=== PATIENT | female | born 1985 | race Caucasian/White ===

== ENCOUNTER 2024-10-05 16:06 | Inpatient (IN) ==
[2024-10-05] MEDS: LACTATED RINGER'S 1,000 ML IV SCH (17:20)
[2024-10-05 17:22] LABS: Basophils # (auto) 0.03 K/uL (0.00-0.20); Basophils % (auto) 0.4 %; Eosinophils # (auto) 0.06 K/uL (0.00-0.50); Eosinophils % (auto) 0.8 %; Hematocrit (blood only) 36.8 % (37.0-47.0); Hemoglobin 12.7 g/dl (12.0-16.0); Immature Granulocytes # (auto) 0.08 K/uL (0.01-0.20); Lymphocytes # (auto) 2.38 K/uL (1.20-3.40); Lymphocytes % (auto) 30.6 %; Mean Corpuscular Hemoglobin 32.9 pg (25.0-34.0); Mean Corpuscular Hgb Conc 34.5 g/dL (32.0-36.0); Mean Corpuscular Volume 95.3 fL (80.0-100.0); Monocytes # (auto) 0.54 K/uL (0.11-0.59); Monocytes % (auto) 6.9 %; Neutrophils # (auto) 4.68 K/uL (1.40-6.50); Neutrophils % (auto) 60.3 %; Platelet Count 163 K/uL (130-400); RDW Coefficient of Variation 12.7 % (11.5-14.5); RDW Standard Deviation 43.7 fL (36.4-46.3); Red Blood Count 3.86 M/uL (4.20-5.40); White Blood Count 7.77 K/ul (4.8-10.8)
[2024-10-05 17:33] LABS: Creatinine Urine Random 67.6 mg/dl; Protein Creatinine Ratio Urine 0.2 (0-0.2); Total Protein Urine Random 13.5 mg/dl (0-11.9)
[2024-10-05 17:38] LABS: Albumin Globulin Ratio 1.2 (0.9-2); Albumin Level 3.3 gm/dl (3.4-5.0); BUN Creatinine Ratio 12.3 (10-20); Bilirubin,Total 0.4 mg/dl (0.2-1.0); Calcium 8.6 mg/dl (8.6-10.3); Creatinine Clr Calc Pharmacy 113.3 ml/min; Globulin 2.8 gm/dl (2.5-4.0); Potassium 4.2 mmol/L (3.5-5.1); Total Protein 6.1 gm/dl (6.0-8.3)
[2024-10-05] MEDS ORDERED: OXYTOCIN 30 UNITS/NSS 30 UNITS/500 ML BAG IV PRN (19:11)
[2024-10-05] MEDS ORDERED: LACTATED RINGER'S 1,000 ML IV PRN (19:11)
[2024-10-05] MEDS ORDERED: LIDOCAINE 1% LOCAL 20 ML VIAL INFIL PRN (19:11)
[2024-10-05] MEDS: PENICILLIN GK 6 MU in DEXTROSE 5% 250 ML IV STA (19:49)
--- NOTE | 2024-10-05 19:49 | History & Physical Report ---
Date of Service October 05, 2024 Assessment & Plan (1) Gestational hypertension: (2) Polyhydramnios affecting : (3) LGA (large for gestational age) fetus affecting mother, antepartum: (4) Gestational diabetes mellitus (GDM) affecting , antepartum: (5) Group beta Strep positive: (6) Rh negative status during : Plan 39 yo at 38 4/7 wga now dx w/ ghtn Mild range bps Fetus cat 1 gHTN - rec induction, pt agreeable. Labs wnl. Will continue to monitor bps GDM - bg q4 labor - will allow pt to have light dinner, then plan antonio/pit GBS+, pcn to start declines epidural History of Present Illness Chief Complaint: elevated bps Primary Care Provider: Alea Tucker 39 yo at 38 4/7 wga presents for eval of bps. Was seen in office for deb today and diastolics noted to be in the 90s persistently. Due to GA, sent for eval. +FM and irreg ctx, denies LOF, VB. Denies jose, vision change, cp, sob, ruq/epigastric pain. On arrival, mild range bps. 2 severes back to back noted but machine was going off during ctx and glitched when rn tried to stop it. Repeat was mild range. Labs and uP:C wnl, however continued to have mild range bps oer 4hrs from initial so meets criteria for ghtn and rec for iol PNI: A1GDM Polyhydramnios GBS+ AMA suspected LGA Rh neg Past Pregnancies Del. Date GA wks Lbr Lgth wt Sex Type del Anes Place Del Prov ? Comment 05/15/04 41 8 8-12 F [facility] N IOL post dates 02/19/09 41 8 9-6 M [facility] N IOL post dates, mild shoulder dystocia 08/02/11 39 8 7-3 F [facility] N 09/23/13 41 8 8-12 F [facility] CON Vasquez N IOL post date denies hx stis Allergies Allergy/AdvReac Type Severity Reaction Status Date / Time No Known Allergies Allergy Verified 10/05/24 17:00 Home Medications Medication Instructions Recorded Confirmed Type acetone (urine) test (Ketone Urine #50 ea 08/10/24 10/05/24 Rx Test strips) blood sugar diagnostic (OneTouch #150 ea 08/10/24 10/05/24 Rx Verio test strips) blood-glucose meter (OneTouch #1 ea 08/10/24 10/05/24 Rx Verio Reflect Meter) lancets 33 gauge (OneTouch Delica #150 ea 08/10/24 10/05/24 Rx Plus Lancet) Patient History Medical History (Updated 10/05/24 @ 19:48 by Zaida Cordova MD) Ovarian cyst Torsion of fallopian tube History of chicken pox Surgical History S/P unilateral salpingo-oophorectomy S/P breast augmentation S/P wisdom tooth extraction S/P loop electrosurgical excision procedure Family History Grandmother (Maternal) Muscular dystrophy Denies family history of Ovarian cancer Breast cancer Colorectal cancer Social History (Updated 03/02/24 @ 10:23 by Tosha Rivas) Smoking Status: Never smoker Do You Dip or Chew Tobacco: No; Hx Substance Use: No Preferred Language: Kyrgyz Communication Ability: Effective Stiff Neck Loader Required: No Beliefs That Will Affect Care: None marital status: Single marital status details: Bin Harrison (40) Current Living Situation: Family Current Living Situation Comment: lives with children, dog current occupational status: employed current occupation: [employer] RN Assistive Devices: Contacts and Glasses Physical Exam Genitourinary: OB Exam Abdomen: + vertex and + estimated weight (7-8) Manual OB Exam: + cervical dilation (1-2), + cervical effacement 20% and + station -2 OB Exam Monitor Tracing: + external FHT monitor used, + external uterine monitor used (irritability, q3-5) and + category I (140/mod/+accel/- decel) Results & Data Vital Signs (Past 12 Hours) Vital Signs Temp Pulse Resp BP 10/05/24 19:07 63 144/89 H 10/05/24 18:34 62 153/87 H 10/05/24 18:18 72 142/89 H 10/05/24 18:03 71 147/93 H 10/05/24 17:48 64 160/89 H 10/05/24 17:29 68 153/91 H 10/05/24 16:56 72 170/92 H 10/05/24 16:51 68 168/89 H 10/05/24 16:49 98.2 F 16 10/05/24 16:48 18 10/05/24 16:48 98.2 F 18 10/05/24 16:39 71 158/95 H 10/05/24 16:27 71 154/90 H Laboratory Results OB Labs: Blood Type A Negative 03/09/24 Antibody Screen NEGATIVE 07/27/24 Hgb 11.9 g/dl (12.0-16.0) L 07/27/24 Hct 35.2 % (37.0-47.0) L 07/27/24 MCV 90.5 fL (80.0-100.0) 03/09/24 Plt Count 264 K/uL (130-400) 03/09/24 Rubella IgG Antibody Immune (Immune) 03/09/24 Treponema pallidum Ab Negative (Negative) 07/27/24 Hep Bs Antigen Negative (Negative) 03/09/24 Hepatitis C Antibody Negative (Negative) 03/09/24 HIV 1&2 Ab/P24 Ag 4thGn Negative (Negative) 03/09/24 Glucose 1 Hr 50 gm 147 mg/dl (70-130) H 07/27/24 OB Optional Labs: Chlamydia trachomatis RNA Not Detected (NotDetected) 03/09/24 Neisseria gonorrhoeae RNA Not Detected (NotDetected) 03/09/24 GBS+ urine low risk cfdna neg horizon Diagnostic Findings 09/10 EFW 84%, AC 98%, ant plac / DVP poly Coding Level of Care Code None Diagnoses Gestational hypertension O13.9 Polyhydramnios affecting O40.9XX0 LGA (large for gestational age) fetus affecting mother, antepartum O36.60X0 Gestational diabetes mellitus (GDM) affecting , antepartum O24.419 Group beta Strep positive B95.1 Rh negative status during O26.899; Z67.91
[2024-10-05] MEDS: OXYTOCIN 30 UNITS/NSS 30 UNITS/500 ML BAG IV PRN (20:41)
--- NOTE | 2024-10-05 20:44 | Communication Note ---
Date of Service: October 05, 2024 Pt had light dinner. 35cc antonio bulb placed, tolerated well. Will start pitocin with it
[2024-10-06] MEDS: PENICILLIN GK 3 MU in DEXTROSE 5% 100 ML IV PRN (00:03)
--- NOTE | 2024-10-06 01:56 | Labor Progress Brief Note ---
Date of Service October 06, 2024 Subjective bulb out, pain manageable Assessment & Plan (1) Gestational hypertension: (2) Polyhydramnios affecting : (3) LGA (large for gestational age) fetus affecting mother, antepartum: (4) Gestational diabetes mellitus (GDM) affecting , antepartum: (5) Group beta Strep positive: (6) Rh negative status during : Plan 39 yo at 38 4/7 wga now dx w/ ghtn Mild range bps Fetus cat 1 gHTN - rec induction, pt agreeable. Labs wnl. Will continue to monitor bps GDM - bg q4 labor - pit at 6, s/p arom, tolerated well GBS+, pcn running declines epidural Admission and Anticipated Discharge Date Admission Date: October 05, 2024 Physical Exam Genitourinary: Manual OB Exam: + cervical dilation 4 cm, + cervical effacement 50%, + station -2 and + amniotic fluid (arom thin mec, large fluid) OB Exam Monitor Tracing: + external FHT monitor used, + external uterine monitor used (q3) and + category I (140/mod/+accel/-decel) Results & Data Vital Signs (Past 12 Hours) Vital Signs Temp Pulse Resp BP 10/06/24 01:52 68 144/79 H 10/06/24 00:44 71 147/93 H 10/06/24 00:00 16 10/06/24 00:00 98.1 F 16 10/05/24 23:46 75 147/87 H 10/05/24 22:46 90 139/67 10/05/24 21:46 77 141/83 H 10/05/24 20:45 80 136/82 10/05/24 19:07 63 144/89 H 10/05/24 19:00 16 10/05/24 19:00 97.9 F 16 10/05/24 18:34 62 153/87 H 10/05/24 18:18 72 142/89 H 10/05/24 18:03 71 147/93 H 10/05/24 17:48 64 160/89 H 10/05/24 17:29 68 153/91 H 10/05/24 16:56 72 170/92 H 10/05/24 16:51 68 168/89 H 10/05/24 16:49 98.2 F 16 10/05/24 16:48 18 10/05/24 16:48 98.2 F 18 10/05/24 16:39 71 158/95 H 10/05/24 16:27 71 154/90 H Coding Level of Care Code None Diagnoses Gestational hypertension O13.9 Polyhydramnios affecting O40.9XX0 LGA (large for gestational age) fetus affecting mother, antepartum O36.60X0 Gestational diabetes mellitus (GDM) affecting , antepartum O24.419 Group beta Strep positive B95.1 Rh negative status during O26.899; Z67.91
--- NOTE | 2024-10-06 03:22 | Delivery Summary ---
Vaginal Delivery Summary Date of Service October 06, 2024 Vaginal Delivery Summary PREOPERATIVE DIAGNOSIS: 1. Single intrauterine at 38 5/7 wga 2. Gestational hypertension 3. A1GDM 4. Polyhydramnios 5. GBS+ 6. AMA POSTOPERATIVE DIAGNOSIS: 1. Single intrauterine at 38 5/7 wga 2. Gestational hypertension 3. A1GDM 4. Polyhydramnios 5. GBS+ 6. AMA 7. Delivered PROCEDURE: 1. Normal spontaneous vaginal delivery. SURGEON: Zaida Cordova MD ANESTHESIA: None QUANTITATIVE BLOOD LOSS: 52 mL FLUIDS: Continuous LR. URINE OUTPUT: None. COMPLICATIONS: None. CONDITION: Stable. INDICATIONS: 39 yo at 38 5/7 wga presented for evaluation due to elevated BPs in the office and met criteria for gestational hypertension. Given GA, she was recommended for induction. Penicillin was started for GBS+ status. Induction begun with antonio bulb and pitocin. Following bulb expulsion, she underwent arom for thin meconium fluid. She progressed to complete and desired to push. FINDINGS: A viable male , weight pending with Apgars of 7 and 9 at 1 and 5 minutes respectively. SPECIMEN: Cord blood OPERATIVE REPORT: The patient progressed to 10 cm, 100% effaced and +2 station, pushed over intact perineum with anesthesia to deliver a viable male infant, weight and Apgars as above. Head of delivered in OA position. No nuchal cord was present. Body and shoulders were delivered without difficulty. was delivered to maternal abdomen and nursing staff. Delayed cord clamping was performed for 60 seconds. Cord was clamped and cut. Cord blood was obtained. Placenta delivered spontaneously intact with 3-vessel cord. IV oxytocin and fundal massage were given for excellent hemostasis. Vagina, cervix, perineum, and placenta were inspected. Hemostatic left superior labial and posterior fourchette abrasions noted but did not need repaired. Sponge and needle counts correct x2. No sponges were left behind. Mother and stable in immediate period. [facility] Vaginal Delivery Charge Vaginal Delivery Codes: 11011 global code for the antepartum, delivery, and post- Delivery Type Details: [facility]
[2024-10-06] MEDS ORDERED: OXYTOCIN 30 UNITS/NSS 30 UNITS/500 ML BAG IV PRN (03:50)
[2024-10-06] MEDS ORDERED: bisacodyL 10 MG SUPP PR PRN (03:50)
[2024-10-06] MEDS ORDERED: ACETAMINOPHEN 325 MG TAB PO PRN (03:50)
[2024-10-06] MEDS ORDERED: BENZOCAINE 20% SPRY 85 APPLN/85 GM CAN EXT PRN (03:50)
[2024-10-06] MEDS ORDERED: HYDROCORTISONE ACETATE 25 MG SUPP PR PRN (03:50)
[2024-10-06] MEDS: IBUPROFEN 600 MG TAB PO PRN (03:53)
[2024-10-06] MEDS: DIPHTHER/TETAN/PERTUS Vaccine (Tdap, Adol/Adult) 0.5mL IM ONE (04:36)
[2024-10-06] MEDS: IBUPROFEN 600 MG TAB PO ONE (04:37)
[2024-10-06] MEDS: DOCUSATE SODIUM 100 MG CAP PO SCH (08:35)
[2024-10-06] MEDS: PRENATAL VITAMIN 1 TAB PO SCH (08:35)
--- NOTE | 2024-10-07 08:11 | Obstetrical Progress Note ---
Date of Service October 07, 2024 day #2 the patient is doing well was induced for gestational hypertension but her blood pressures are normal now she is not currently on treatment Assessment & Plan (1) Gestational hypertension: day #2 she is not on treatment we will plan on discharge home we will have her seen in the office this week for follow-up to check blood pressure Physical Exam Constitutional WD/WN, vitals as above well developed and well nourished Respiratory normal respiratory effort, lungs clear to auscultation normal respiratory effort Cardiovascular RRR, no murmur, no edema Gastrointestinal (Abdomen) normal bowel sounds, soft, nontender, no hepatosplenomegaly Results & Data Vital Signs (Past 12 Hours) Vital Signs Temp Pulse Resp BP Pulse Ox O2 Del Method 10/06/24 23:05 99.0 F 79 16 134/82 99 Room Air
[2024-10-07 11:40] VITALS: BP 146/88; PULSE 77; RESP 16; TEMP 98.4; O2SAT 98
[2024-10-07] MEDS ORDERED: bisacodyL 5 MG TABEC PO SCH (20:00)
== END 2024-10-07 13:35 | disposition home or self-care (01) | DRG 807 ==
LOC: OPB 16:06 → 4S1 16:08 → 4E2 10-06 05:57